=== PATIENT | female | born 1985 | race Caucasian/White ===

== ENCOUNTER 2016-11-16 01:20 | Observation (INO) | payer BC ==
[~2016-11-16] VITALS: Ht 170.2 cm; Wt 89.4 kg
[2016-12-02] MEDS ORDERED: PRENATAL VIT1 TAB PO (15:46)
[2016-12-02] MEDS ORDERED: CLARITIN DPS10 MG PO (15:46)
[2016-12-02] MEDS ORDERED: FLONASE 0.05% D16 GM NS (15:48)
[2016-12-02] MEDS ORDERED: MOTRIN-DPS800 MG PO (15:48)
[2016-12-02] MEDS ORDERED: COLACE-DPS100 MG PO (15:48)
[2016-12-02] MEDS ORDERED: NIPPLECREAM TP (15:49)
[2016-12-02] MEDS ORDERED: TYLENOL EXTRA500 MG PO (15:49)
== END 2016-11-16 09:24 | disposition home or self-care (01) ==
LOC: 2LDRP 01:20 → BC 01:20 → 2LDRP 06:50 → BC 06:50 → 2LDRP 07:20 → BC 11-27 08:00
PROVIDERS: ADMIT Obstetrics & Gynecology
DX: O47.1 False labor at or after 37 completed weeks of gestation (principal); Z3A.38 38 weeks gestation of pregnancy

== ENCOUNTER 2016-11-30 06:36 | Inpatient (IN) | payer BC ==
[~2016-11-30] VITALS: Ht 170.2 cm; Wt 92.5 kg
--- NOTE | ~2016-11-30 | FD ---
ADMIT: 11/30/2016 RM/LOC: 222 [facility] MR#: [id number] [address] SORAYA INFANTE [address] [place] [id number] Final Diagnosis SEX: F AGE: 31 : 1985 ADMISSION DATE: 11/30/2016 DISCHARGE DATE: 12/01/2016 FINAL DIAGNOSIS: Status post spontaneous vaginal delivery. PROCEDURE: Spontaneous vaginal delivery. Екатерина Forrest MD/ rosa JOB #: [id number] CC: Екатерина Forrest MD, Attending Physician UNKNOWN, Family Physician
[2016-12-02] MEDS ORDERED: PRENATAL VIT1 TAB PO (15:46)
[2016-12-02] MEDS ORDERED: CLARITIN DPS10 MG PO (15:46)
[2016-12-02] MEDS ORDERED: COLACE-DPS100 MG PO (15:48)
[2016-12-02] MEDS ORDERED: MOTRIN-DPS800 MG PO (15:48)
[2016-12-02] MEDS ORDERED: FLONASE 0.05% D16 GM NS (15:48)
[2016-12-02] MEDS ORDERED: TYLENOL EXTRA500 MG PO (15:49)
[2016-12-02] MEDS ORDERED: NIPPLECREAM TP (15:49)
--- NOTE | 2016-12-11 08:24 | OR ---
ADMIT: 11/30/2016 RM/LOC: 222 [facility] MR#: [id number] [address] [address] SORAYA INFANTE [address] [place] [address] Operative/Delivery Room Report SEX: F AGE: 31 : 1985 SURGERY DATE: 11/30/2016 SURGEON: Екатерина Forrest MD DELIVERY NOTE: The patient delivered a viable female infant by a spontaneous vaginal delivery at 1312 hours. The cord was found to be wrapped around the baby's right arm and this was reduced. The infant was placed on the mother's abdomen, and the cord was doubly clamped and cut. The was handed off to the awaiting nurse. Cord blood was sent. The 's weight was 4140 g. scores were 8 and 9. The placenta then delivered spontaneously intact with a three-vessel cord. Twenty units of Pitocin were infused with intravenous fluids. An examination of the perineum revealed a right labial laceration, which was repaired with 3-0 Vicryl in the usual fashion with excellent hemostasis. Estimated blood loss for the entire procedure was 250 mL. The patient and infant are in her room in stable condition. Екатерина Forrest MD/ manuel JOB #: [id number] CC: Екатерина Forrest, Attending Physician UNKNOWN, Family Physician
--- NOTE | 2016-12-11 08:24 | HP ---
ADMIT: 11/30/2016 RM/LOC: 222 [facility] MR#: [id number] [facility] [address] [place] [id number] SORAYA INFANTE [address] [place] [address] History and Physical SEX: F AGE: 31 : 1985 DATE OF SERVICE: 11/30/2016 CHIEF COMPLAINT: Induction of labor. HISTORY OF PRESENT ILLNESS: The patient is a 31-year-old, 3, para 1-0- 1-1, with an intrauterine at 40 and 3/7th weeks by last menstrual period consistent with a 6-week ultrasound, who presented to Labor and Delivery for post EDC induction of labor. PAST MEDICAL HISTORY: 1. History of spontaneous . 2. History of vacuum-assisted vaginal delivery in previous . PAST SURGICAL HISTORY: None. FAMILY HISTORY: Paternal grandfather with diabetes. Maternal great aunt and mother with breast cancer. SOCIAL HISTORY: The patient denies alcohol, tobacco, or illicit drug use. She is to [place], and employed corporate meeting planner at [employer]. MEDICATIONS: 1. vitamins 1 tablet p.o. daily. 2. Fluticasone nasal suspension one spray each nostril daily. 3. Fexofenadine 60 mg, one tablet p.o. daily p.r.n. ALLERGIES: NO KNOWN MEDICAL ALLERGIES. REVIEW OF SYSTEMS: The patient denies vaginal bleeding, loss of fluid, uterine contractions, or decreased movement. OBSTETRICAL LABS: Blood type A positive, antibody screen negative, RPR nonreactive, rubella immune, HIV negative, gonorrhea and chlamydia negative. Hepatitis B surface antigen negative. Diabetic screen 120. Group B strep negative. PHYSICAL EXAMINATION: GENERAL: Well-developed, well-nourished, white female, alert and oriented x3, in no acute distress. VITAL SIGNS: Blood pressure 122/72, pulse 86, respirations 16, temperature 98.5 degrees Fahrenheit. Height 5 feet 7 inches and weight 204 pounds. HEENT: Head is normocephalic, atraumatic. Pupils are equal and round. Extraocular muscles are intact. NECK: Supple. Trachea midline. Thyroid not palpable. HEART: Regular rate and rhythm. LUNGS: Clear to auscultation bilaterally. ABDOMEN: Soft, nontender, gravid. EXTREMITIES: 1+ edema bilaterally. NEUROLOGIC: Cranial nerves II through XII grossly intact. 2+ deep tendon ADMIT: 11/30/2016 RM/LOC: 222 [facility] MR#: [id number] [address] [id number] SORAYA INFANTE [address] [place] [address] History and Physical SEX: F AGE: 31 : 1985 reflexes noted. CERVIX: Sterile vaginal examination by the nurse on admission reveals the cervix to be 3 cm dilated, 70% effaced, -2 station. heart tones in the 120s with 15 x 15 accelerations, moderate long-term variability, and no decelerations. Irregular uterine contractions are noted on the monitor. ASSESSMENT AND PLAN: 1. This is a 31-year-old, 3, para 1-0-1-1, with an intrauterine at 40 and 3/7th weeks by last menstrual period consistent with a 6-week ultrasound, who presents to Labor and Delivery for post EDC induction of labor. 2. Group B strep negative. No prophylaxis will be provided. 3. Fetus is vertex and overall reassuring. Екатерина Forrest MD/ manuel JOB #: [id number] CC: Екатерина Forrest, Attending Physician UNKNOWN, Family Physician
== END 2016-12-01 15:25 | disposition home or self-care (01) | DRG 775 ==
LOC: 2LDRP 06:36 → BC 06:36 → 2LDRP 06:43
PROVIDERS: ADMIT Obstetrics & Gynecology
PROC: 0UQMXZZ Repair Vulva, External Approach (ICD-10-PCS; principal; 2016-11-30)
PROC: 10907ZC Drainage of Amniotic Fluid, Therapeutic from Products of Conception, Via Natural or Artificial Opening (ICD-10-PCS; principal; 2016-11-30)
PROC: 3E033VJ Introduction of Other Hormone into Peripheral Vein, Percutaneous Approach (ICD-10-PCS; principal; 2016-11-30)
PROC: 10E0XZZ Delivery of Products of Conception, External Approach (ICD-10-PCS; principal; 2016-11-30)
DX: O48.0 Post-term pregnancy (principal); O76 Abnormality in fetal heart rate and rhythm complicating labor and delivery; O70.0 First degree perineal laceration during delivery; Z3A.40 40 weeks gestation of pregnancy; Z37.0 Single live birth